=== PATIENT | female | born 1950 | race Caucasian/White ===

== ENCOUNTER 2017-05-22 11:18 | Outpatient (CLI) | payer BC, OTHER | END 2017-05-22 20:34 | disposition home or self-care (01) | LOC: SMA 11:18 | PROVIDERS: ATTEND Obstetrics & Gynecology Gynecology | DX: Z12.31 Encounter for screening mammogram for malignant neoplasm of breast (principal) | CPT/HCPCS: 77067 ==

== ENCOUNTER 2017-06-15 11:21 | Outpatient (CLI) | payer BC, OTHER | END 2017-06-15 20:16 | disposition home or self-care (01) | LOC: SUS 11:21 | PROVIDERS: ATTEND Obstetrics & Gynecology Gynecology | DX: N63.21 Unspecified lump in the left breast, upper outer quadrant (principal) | CPT/HCPCS: 76642 ==

== ENCOUNTER 2018-07-07 10:32 | Outpatient (CLI) | payer BC, OTHER | END 2018-07-07 21:14 | disposition home or self-care (01) | LOC: SMA 10:32 | PROVIDERS: ATTEND Obstetrics & Gynecology Gynecology | DX: Z12.31 Encounter for screening mammogram for malignant neoplasm of breast (principal) | CPT/HCPCS: 77067 ==

== ENCOUNTER 2019-01-04 06:05 | Day surgery (SDC) | payer BC, OTHER ==
[2019-01-03 14:11] LABS: BILIRUBIN,URINE NEGATIVE (NEGATIVE); BLOOD, URINE NEGATIVE (NEGATIVE); CLARITY/URINE CLEAR (CLEAR); COLOR,URINE YELLOW (YELLOW); GLUCOSE,URINE NEGATIVE (NEGATIVE); KETONES,URINE NEGATIVE (NEGATIVE); LEUKOCYTE ESTERASE ,URINE NEGATIVE (NEGATIVE); NITRITE, URINE NEGATIVE (NEGATIVE); PH,URINE 5.5 (5.0-8.0); PROTEIN URINE NEGATIVE (NEGATIVE); UROBILINOGEN,URINE 0.2 (0.2-1.0)
[2019-01-03 14:13] LABS: BASOPHILS % (AUTO) 0.7 % (0.0-2.0); EOSINOPHILS % (AUTO) 0.7 % (0.0-4.0); HEMATOCRIT 43.8 % (36-48); HEMOGLOBIN 15.1 g/dL (12.0-16.0); LYMPHOCYTES # (AUTO) 1.6 K/uL (1.0-5.5); LYMPHOCYTES % (AUTO) 30.6 % (20.5-51.5); MEAN CORPUSCULAR HEMOGLOBIN 34 pg (27-31); MEAN CORPUSCULAR HGB CONC 35 % (32-36); MEAN CORPUSCULAR VOLUME 97 fL (79.0-98.0); MONOCYTES # (AUTO) 0.3 K/uL (0.0-1.0); MONOCYTES % (AUTO) 5.5 % (1.7-9.3); NEUTROPHILS # (AUTO) 3.3 K/uL (1.8-7.7); NEUTROPHILS % (AUTO) 62.5 % (40.0-70.0); PLATELET COUNT (AUTO) 246 K/uL (130-430); RED BLOOD CELL COUNT(AUTO) 4.52 MIL/uL (4.2-6.2); RED CELL DISTRIBUTION WIDTH 13.2 % (9.0-15.0); WHITE BLOOD COUNT (AUTO) 5.4 K/uL (4.8-10.8)
[2019-01-03 14:26] LABS: CREATININE 0.78 mg/dL (0.55-1.30); POTASSIUM 3.7 mmol/L (3.5-5.1); TOTAL BILIRUBIN 0.9 mg/dL (0.0-1.0)
[2019-01-03 14:29] LABS: INR 1.1 (0.8-1.2); PROTHROMBIN TIME 10.7 SECS (9.5-12.5)
[~2019-01-04] VITALS: Ht 157.5 cm; Wt 67.1 kg
[2019-01-04] MEDS ORDERED: D5LR 1,000 ML IV SCH (07:00)
[2019-01-04] MEDS ORDERED: CEFAZOLIN 2 GM IVPB PREMIX 50 ML IV SCH (07:00)
[2019-01-04] MEDS ORDERED: LR 1,000 ML IV SCH (07:59)
[2019-01-04] MEDS ORDERED: MORPHINE 4 MG/ML INJ. SYRINGE IVP PRN ×3 (08:00)
[2019-01-04] MEDS ORDERED: METOCLOPRAMIDE HCL 10 MG/2 ML VIAL IVP PRN (08:00)
[2019-01-04] MEDS ORDERED: PROPOFOL 200MG/ 20ML VIAL (DIPRIVAN) IV ONE (08:30)
[2019-01-04] MEDS ORDERED: LR 1,000 ML IV.SOLN IV ONE (08:30)
[2019-01-04] MEDS ORDERED: NS IRRIG SOLN 5000 ML IR ONE (08:30)
[2019-01-04] MEDS ORDERED: MIDAZOLAM HCL 5 MG/ML VIAL (VERSED) IV ONE (08:30)
[2019-01-04] MEDS ORDERED: SILVER NITRATE APPLICATOR 1 STICK STICK..EA. TP ONE (08:30)
[2019-01-04] MEDS ORDERED: KETOROLAC TROMETHAMINE 30 MG VIAL ONE (08:30)
[2019-01-04] MEDS ORDERED: PHENYLEPHRINE HCL 10 MG/ML VIAL (NEOSYNEPHRINE) ONE (08:30)
[2019-01-04] MEDS ORDERED: SEVOFLURANE 15 MIN GAS INH ONE (08:30)
[2019-01-04] MEDS ORDERED: fentaNYL CITRATE/PF 100 MCG/2 ML AMP ONE (08:30)
[2019-01-04] MEDS ORDERED: HYDROcodone/ACETAMIN 5-325 MG TAB (NORCO/ VICODIN) PO PRN ×2 (08:45)
[2019-01-04] MEDS ORDERED: ONDANSETRON HCL 4 MG/2 ML VIAL IVP PRN (08:45)
[2019-01-04 09:37] VITALS: BP_SYST 114
[2019-01-04] MEDS ORDERED: OXYCODONE/ACETAMINOPHEN 5-325 TABLET PO PRN (10:15)
[2019-01-04] MEDS ORDERED: OXYCODONE/ACETAMINOPHEN 5-325 TABLET ONE (10:18)
== END 2019-01-04 10:30 | disposition home or self-care (01) ==
LOC: SDS 06:05
PROVIDERS: ATTEND Obstetrics & Gynecology Gynecology
DX: N95.0 Postmenopausal bleeding (principal); N84.0 Polyp of corpus uteri; R93.89 Abnormal findings on diagnostic imaging of other specified body structures; E03.9 Hypothyroidism, unspecified; M85.80 Other specified disorders of bone density and structure, unspecified site; G47.00 Insomnia, unspecified; Z90.49 Acquired absence of other specified parts of digestive tract; Z90.89 Acquired absence of other organs; Z79.899 Other long term (current) drug therapy
CPT/HCPCS: 36415; 58558; 71046; 80053; 81003; 85025; 85610; 85730; 86886; 86900; 86901; 88305; 93005; C1819; J0690; J1885; J2250; J2370; J2704; J3010; J7120

== ENCOUNTER 2019-09-28 13:06 | Outpatient (CLI) | payer BC, OTHER | END 2019-09-28 20:14 | disposition home or self-care (01) | LOC: SMA 13:06 | PROVIDERS: ATTEND Obstetrics & Gynecology Gynecology | DX: Z12.31 Encounter for screening mammogram for malignant neoplasm of breast (principal) | CPT/HCPCS: 77067 ==

== ENCOUNTER 2021-02-13 13:18 | Outpatient (CLI) | payer BC, OTHER | END 2021-02-13 18:54 | disposition home or self-care (01) | LOC: SMA 13:18 | PROVIDERS: ATTEND Obstetrics & Gynecology Gynecology | DX: Z12.31 Encounter for screening mammogram for malignant neoplasm of breast (principal) | CPT/HCPCS: 77067 ==

== ENCOUNTER 2021-03-14 13:00 | Outpatient (CLI) | payer BC, OTHER | END 2021-03-14 20:32 | disposition home or self-care (01) | LOC: SUS 13:00 | PROVIDERS: ATTEND Obstetrics & Gynecology Gynecology | DX: N63.20 Unspecified lump in the left breast, unspecified quadrant (principal); R92.2 Inconclusive mammogram | CPT/HCPCS: 76641 ==

== ENCOUNTER 2022-03-06 13:27 | Outpatient (CLI) | payer OTHER | END 2022-03-06 19:03 | disposition home or self-care (01) | LOC: SMA 13:27 | PROVIDERS: ATTEND Obstetrics & Gynecology Gynecology | DX: Z12.31 Encounter for screening mammogram for malignant neoplasm of breast (principal) | CPT/HCPCS: 77067 ==

== ENCOUNTER 2023-07-02 14:50 | Outpatient (CLI) | payer OTHER, MEDICARE | END 2023-07-02 18:09 | disposition home or self-care (01) | LOC: SMA 14:50 | PROVIDERS: ATTEND Obstetrics & Gynecology Gynecology | DX: Z12.31 Encounter for screening mammogram for malignant neoplasm of breast (principal) | CPT/HCPCS: 77067 ==